=== PATIENT | female | born 1960 | race Caucasian/White ===

== ENCOUNTER 2017-12-28 10:12 | Outpatient (CLI) | payer OTHER ==
[2017-12-28 11:16] LABS: #Basophils 0.1 thou/uL (0.0-0.2); #Eosinphils 0.1 thou/uL (0.0-0.7); #Lymphocytes 1.5 thou/uL (1.20-3.40); #Monocytes 0.5 thou/uL (0.11-0.59); %Basophils 0.9 % (0.0-1.0); %Eosinophils 1.2 % (0.0-10.0); %Lymphocytes 20.9 % (21.0-51.0); %Monocytes 6.6 % (0.0-10.0); %Neutrophils 70.3 % (42.0-75.0); Hemoglobin 14.9 g/dL (12.0-16.0); Mean Corpuscular HGB CONC 33.1 g/dL (32.0-36.0); Mean Corpuscular Hemoglobin 33.3 pg (27.0-31.0); Mean Platelet Volume 6.7 fL (7.4-10.4); Platelet Count 345 thou/uL (130-400); RBC Distribution Width 13.1 % (11.5-14.5); Red Blood Cell (RBC) Count 4.47 mill/uL (4.20-5.40); White Blood Cell (WBC) Count 7.1 thou/uL (4.8-10.8)
[2017-12-28 11:35] LABS: Anion Gap 12 mmol/L (10-20); BUN (Urea Nitrogen) 5 mg/dL (9.8-20.1); Calc. Creatinine Clearance 0 mL/min (70-130); Calcium 9.8 mg/dL (7.8-10.44); Carbon Dioxide 26 mmol/L (22-29); Chloride 104 mmol/L (98-107); Estimated GFR-MDRD 83; Glucose 88 mg/dL (70-105); Potassium 4.1 mmol/L (3.5-5.1); Sodium 138 mmol/L (136-145)
== END 2017-12-28 10:13 | disposition home or self-care (01) ==
LOC: LABBT 10:12
PROVIDERS: ATTEND Surgery
DX: Z01.812 Encounter for preprocedural laboratory examination (principal); K43.2 Incisional hernia without obstruction or gangrene
CPT/HCPCS: 80048; 85025

== ENCOUNTER 2018-01-02 11:05 | Day surgery (SDC) | payer OTHER ==
[2017-12-28 10:30] VITALS: BMI 22.7
[2018-01-02] MEDS ORDERED: CEFAZOLIN/Water 2 GM/20 ML SYRINGE ONE (11:34)
[2018-01-02] MEDS ORDERED: ePHEDrine/0.9% NaCl/PF SYRINGE 50 mg/10 ml ONE (12:43)
[2018-01-02] MEDS ORDERED: PROPOFOL 200 MG/20 ML VIAL ONE (12:43)
[2018-01-02] MEDS ORDERED: PHENYLEPHRINE-NS 100 MCG/ML 10 ML SYRINGE ONE (12:43)
[2018-01-02] MEDS ORDERED: Ondansetron HCl/PF 4 MG/2 ML Vial ONE (12:43)
[2018-01-02] MEDS ORDERED: Glycopyrrolate 0.2 MG/ML 5 ML SYRINGE ONE (12:43)
[2018-01-02] MEDS ORDERED: Lidocaine 1% PF 5 ML VIAL ONE (12:43)
[2018-01-02] MEDS ORDERED: Dexamethasone 20 MG/5 ML VIAL ONE (12:43)
[2018-01-02] MEDS ORDERED: Bupivacaine/Epinephrine 0.25% 30 ML VIAL ONE (13:25)
[2018-01-02] MEDS ORDERED: Fentanyl 100 MCG/2 ML VIAL ONE ×2 (13:29→15:33)
[2018-01-02] MEDS ORDERED: Promethazine HCl 25 MG/ML VIAL ONE (15:33)
[2018-01-02] MEDS ORDERED: Ketorolac Tromethamine 30 MG/ML VIAL ONE (15:43)
--- NOTE | 2018-01-03 09:52 | OP ---
DATE OF PROCEDURE: 01/02/2018 PREOPERATIVE DIAGNOSIS: Incisional hernia. POSTOPERATIVE DIAGNOSIS: Incisional hernia. PROCEDURE: Da Brayan laparoscopic incisional hernia repair with mesh [address] SURGEON: Dr. You Dimas ANESTHESIA: General. ESTIMATED BLOOD LOSS: Minimal. COMPLICATIONS: None. SPECIMEN: None. FINDINGS: Incisional hernia. TECHNIQUE: The patient was taken to the operating room and placed supine on the table. After genera l anesthetic was obtained, a Maldonado catheter was placed. The abdomen is prepped and draped in a steri le fashion. Left subcostal 5-mm Optiview trocar was placed in the usual fashion without injury and h igh flow pneumoperitoneum was obtained. The patient had a fascial defect above the umbilicus, the de cision was made to place the laparoscopic ports in the lower abdomen 11 mm trocar was placed in the l ower midline. The balloon was inflated, 8 mm robot assist trocars are placed in the left lower quadr ant and right lower quadrant. All ports are docked to the robot. All posterior abdominal adhesions are taken down sharply without injury, exposing the defect. The defect is closed using #1 V-Loc sutu re. There were 2 defects right next to each other that were closed in this manner, 11 cm Ventralex m esh was brought into the sterile field, it was rolled, the nonadherent surface is labeled, it was sergei padmini in the abdominal cavity. The needle from #1 V-Loc is used to hold the mesh up against the farm operations technical director ior abdominal wall. The nonadherent layer was left down against the abdominal viscera. 2-0 V-Loc is used to sew the mesh to the posterior fascia circumferentially around the edges. All needles and suazo ture was removed from the abdomen. There is no evidence of injury to any intraabdominal structures. All port sites are infiltrated using local anesthetic. All ports are removed under camera visualiza tion without bleeding. Pneumoperitoneum was let down. 4-0 Monocryl and Dermabond were used to close all skin incisions. Patient is en route to recovery in stable condition. All instrument counts, ne edle counts, lap counts were correct.
== END 2018-01-02 17:18 | disposition home or self-care (01) ==
LOC: SDC 11:05
PROVIDERS: ATTEND Surgery
PROC: 0WUF4JZ Supplement Abdominal Wall with Synthetic Substitute, Percutaneous Endoscopic Approach (ICD-10-PCS; principal; 2018-01-02)
DX: K43.2 Incisional hernia without obstruction or gangrene (principal); F32.9 Major depressive disorder, single episode, unspecified; F17.200 Nicotine dependence, unspecified, uncomplicated
CPT/HCPCS: 96374; 96375; C1781; J1885; J2550; J3010